=== PATIENT | female | born 2000 | race Hispanic/Latino ===

== ENCOUNTER 2019-10-31 21:06 | Emergency (ER) | payer SELFPAY ==
[2019-10-31 21:31] LABS: #Eosinphils 0.1 thou/uL (0.0-0.7); #Monocytes 0.5 thou/uL (0.11-0.59); #Neutrophils 6.7 thou/uL (1.40-6.50); %Basophils 0.5 % (0.0-1.0); %Eosinophils 1.1 % (0.0-10.0); %Lymphocytes 21.7 % (21.0-51.0); %Monocytes 5.3 % (0.0-10.0); %Neutrophils 71.5 % (42.0-75.0); Hemoglobin 14.2 g/dL (12.0-16.0); Mean Corpuscular HGB CONC 33.4 g/dL (32.0-36.0); Mean Corpuscular Hemoglobin 31.4 pg (27.0-31.0); Mean Corpuscular Volume 94.1 fL (78.0-98.0); Mean Platelet Volume 7.3 fL (7.4-10.4); Platelet Count 228 thou/uL (130-400); RBC Distribution Width 11.2 % (11.5-14.5); Red Blood Cell (RBC) Count 4.53 mill/uL (4.20-5.40); White Blood Cell (WBC) Count 9.4 thou/uL (4.8-10.8)
--- NOTE | 2019-10-31 23:21 | ULT ---
Pelvic ultrasound HISTORY: Positive hCG. COMPARISON: None. FINDINGS: Real-time imaging was obtained transabdominally. This shows a single viable intrauterine pr egnancy. [place]-rump length measurements are 4.8 cm corresponding to 11 weeks 4 days. Gestational sac measurements are 4.8 cm corresponding to 10 weeks 3 days. heart rate is 160 bpm. A tiny sub chorionic bleed is present. The ovaries are not visualized. No free fluid seen. IMPRESSION: Single viable intrauterine with measurements corresponding to a gestational age of 11 weeks 0 days estimated date of delivery of 05/21/2020.
[2019-10-31 23:37] LABS: Bacteria/HPF None Seen HPF (None Seen); Bilirubin Negative (Negative); Blood, Urine 2+ (Negative); Clarity Clear (Clear); Glucose, Urine (Dipstick) Normal (Negative); Leukocyte Negative Leu/uL (Negative); Nitrite Negative (Negative); Protein, Urine (Dipstick) Negative (Neg-Trace); RBC/HPF 0-3 HPF (0-3); Squamous Epithelial 0-3 HPF (0-3); Urobilinogen Normal mg/dL (Less than 2); WBC/HPF 0-3 HPF (0-3)
== END 2019-10-31 23:58 | disposition home or self-care (01) ==
LOC: ERS 21:06
DX: O20.9 Hemorrhage in early pregnancy, unspecified (principal); Z3A.11 11 weeks gestation of pregnancy
CPT/HCPCS: 36415; 76856; 81003; 81015; 84702; 85025; 86850; 86900; 86901; 93976

== ENCOUNTER 2019-12-30 10:27 | Outpatient (CLI) | payer OTHER ==
--- NOTE | 2019-12-30 14:12 | ULT ---
OB ULTRASOUND: 12/30/19 HISTORY: anatomy. FINDINGS: A single live intrauterine gestation is seen with measurements corresponding to an estimated gestatio nal age of 20 weeks, 5 days and [place] at 05/13/2020. The estimated weight measures 337 grams or 12 oz (47th percentile by Hadlock criteria). The measurements are as follows: BPD 5.18 cm 21 weeks, 5 days HC 18.65 cm 21 weeks, 0 days AC 14.78 cm 20 weeks, 1 day FL 3.21 cm 20 weeks, 0 days heart rate measures 152 beats per minute. KARON measures 12.5 cm. Placenta is posteriorly locate d and low lying without evidence of placenta previa. Cervical length measures 3.6 cm. A three vessel cord, cord insertion, kidneys, bladder, stomach, 4 chambered heart, lateral ventricles, cerebe llum, spine, lips/nose, upper and lower extremities are visualized. No definite anomalies are s een. IMPRESSION: 1. Single live IUP of 20 weeks, 5 days estimated gestational age and [place] at 05/13/2020. 2. Low lying posterior placenta without placenta previa. POS: [facility]
== END 2019-12-30 10:28 | disposition home or self-care (01) ==
LOC: BICULT 10:27
PROVIDERS: ATTEND Nurse Practitioner
DX: O44.42 Low lying placenta NOS or without hemorrhage, second trimester (principal); Z3A.20 20 weeks gestation of pregnancy
CPT/HCPCS: 76805